=== PATIENT | female | born 1995 | race Caucasian/White ===

== ENCOUNTER 2016-03-22 17:01 | Emergency (ER) | payer OTHER ==
[~2016-03-22] VITALS: Ht 172.7 cm; Wt 74.2 kg
[2016-03-22 17:24] VITALS: Ht 172.7 cm; Wt 74.2 kg
[2016-03-22] MEDS ORDERED: KETOROLAC TROMETHAMINE 30 MG/ML VIAL IV STA (18:25)
[2016-03-22] MEDS ORDERED: SODIUM CHLORIDE 0.9% 1000ML 1,000 ML IV ONE (18:25)
[2016-03-22] MEDS ORDERED: SODIUM CHLORIDE 0.9% 1000ML 1,000 ML IV STA (18:25)
--- NOTE | 2016-03-22 18:34 | EMERGENCY ROOM VISIT NOTE ---
History Report prepared by Jessika: Christopher Hope Under the Supervision of: Dr. Christopher Friedman M.D. First contact with patient: 18:14 Chief Complaint: FLU LIKE SX Stated Complaint: FEVER, INCREASED HEART RATE History of Present Illness The patient is a 20 year old female who presents to the Emergency Room with complaints of a persistent illness beginning yesterday. She notes she had a fever of 101.8 yesterday morning and today was a high of 105. She was seen at [facility] earlier today and was given Tylenol. A rapid strep test at [facility] was negative. She admits to having a sore throat with pain during swallowing, a mild headache that comes and goes, neck soreness, and body aches. She denies any post nasal drip, cough, ear ache, rhinorrhea, numbness or weakness. She has been drinking fluids. She denies any chance of , thyroid problems, or contact with sick people. The patient has asthma. No rash. Source of History: patient Onset: yesterday Position: other (global) Symptom Intensity: fever high today of 105 Quality: other (illness) Timing: other (persistent) Associated Symptoms: + fevers (101.8 yesterday; 105 toady), + headache, + sorethroat (and pain during swallowing), No cough, No diarrhea, No numbness, No urinary symptoms, No weakness Review of Systems See HPI for pertinent positives & negatives. A total of 10 systems reviewed and were otherwise negative. Past Medical & Surgical Medical Problems: (1) History of asthma Old medical records were reviewed. Nurse's notes were reviewed and I agree with. Denies significant past medical history besides asthma which has not given her problems at present Family History No pertinent family history stated. Social History Smoking Status: Never Smoker Drug Use: none Current/Historical Medications Scheduled Levonorgestrel (Iud) (Mirena), 1 DOSE VAGRING MONTHLY Oseltamivir (Tamiflu), 75 MG PO BID [Symbicort], 2 PUFFS PO BID Allergies Coded Allergies: No Known Allergies (Unverified , 03/22/16) Physical Exam Vital Signs Date Time Temp Pulse Resp B/P Pulse Ox O2 Delivery O2 Flow Rate FiO2 03/22/16 23:20 94 18 104/72 99 Room Air 03/22/16 19:14 37.4 103 122/65 98 Room Air 03/22/16 17:24 37.9 142 18 121/64 96 Room Air Physical Exam General: Well developed well nourished in no acute distress, breathing comfortably on room air. Normal speech. Non-ill appearing, young female. HEENT: Normal cephalic atraumatic. Pupils are equal round and reactive to light. Extraocular movements are intact. Oropharynx is pink with moist mucous membranes. No swelling of the mouth lips or tongue. Neck: Supple with a midline trachea. No meningeal signs or stiffness, no JVD or bruits. No Stridor. Kernig and Brudzinski signs are negative. Mild cervical lymphadenopathy. Chest: Clear to auscultation bilaterally. No wheezes or rhonchi. No increased work of breathing. Heart: regular rate and rhythm. Abdomen: Soft nontender, nondistended without rebound guarding or rigidity. Extremities: No cyanosis clubbing or edema. No calf tenderness or assymetry Spine/Back. Non tender to palpation. No CVA tenderness Skin: Good turgor without rashes. Neurologic exam: Cranial nerves two through 12 are intact. Motor and sensation are intact and symmetrical throughout. Medical Decision & Procedures ER Provider Diagnostic Interpretation: X-ray results as stated below per interpretation by me and the radiologist: CHEST ONE VIEW PORTABLE FINDINGS: The cardiac and mediastinal contours are normal. There is no evidence of focal pulmonary consolidation. There is no evidence of failure. No pleural effusions are visualized. IMPRESSION: No active disease in the chest. Electronically signed by: Quinton Adame M.D. 03/22/2016 6:40 PM Dictated Date/Time: 03/22/2016 6:40 PM Laboratory Results 03/22/16 18:54 Red Blood Count 4.01, Mean Corpuscular Volume 83.0, Mean Corpuscular Hemoglobin 27.9, Mean Corpuscular Hemoglobin Concent 33.6, Mean Platelet Volume 8.9, Neutrophils (%) (Auto) 82.3, Lymphocytes (%) (Auto) 9.0, Monocytes (%) (Auto) 8.1, Eosinophils (%) (Auto) 0.0, Basophils (%) (Auto) 0.3, Neutrophils # (Auto) 14.37, Lymphocytes # (Auto) 1.57, Monocytes # (Auto) 1.41, Eosinophils # (Auto) 0.00, Basophils # (Auto) 0.06 03/22/16 18:54 Test 03/22/16 18:45 03/22/16 18:54 03/22/16 18:58 Influenza Type A Antigen Neg for Influ A (NEG) Influenza Type B Antigen Neg for Influ B (NEG) White Blood Count 17.47 K/uL (4.8-10.8) Red Blood Count 4.01 M/uL (4.2-5.4) Hemoglobin 11.2 g/dL (12.0-16.0) Hematocrit 33.3 % (37-47) Mean Corpuscular Volume 83.0 fL (80-100) Mean Corpuscular Hemoglobin 27.9 pg (25-34) Mean Corpuscular Hemoglobin Concent 33.6 g/dl (32-36) Platelet Count 322 K/uL (130-400) Mean Platelet Volume 8.9 fL (7.4-10.4) Neutrophils (%) (Auto) 82.3 % Lymphocytes (%) (Auto) 9.0 % Monocytes (%) (Auto) 8.1 % Eosinophils (%) (Auto) 0.0 % Basophils (%) (Auto) 0.3 % Neutrophils # (Auto) 14.37 K/uL (1.4-6.5) Lymphocytes # (Auto) 1.57 K/uL (1.2-3.4) Monocytes # (Auto) 1.41 K/uL (0.11-0.59) Eosinophils # (Auto) 0.00 K/uL (0-0.5) Basophils # (Auto) 0.06 K/uL (0-0.2) RDW Standard Deviation 41.8 fL (36.4-46.3) RDW Coefficient of Variation 13.7 % (11.5-14.5) Immature Granulocyte % (Auto) 0.3 % Immature Granulocyte # (Auto) 0.06 K/uL (0.00-0.02) Anion Gap 15.0 mmol/L (3-11) Est Creatinine Clear Calc Drug Dose 99.4 ml/min Estimated GFR () 105.3 Estimated GFR (Non- 90.8 BUN/Creatinine Ratio 11.3 (10-20) Calcium Level 8.8 mg/dl (8.5-10.1) Total Bilirubin 0.5 mg/dl (0.2-1) Direct Bilirubin 0.1 mg/dl (0-0.2) Aspartate Amino Transf (AST/SGOT) 22 U/L (15-37) Alanine Aminotransferase (ALT/SGPT) 25 U/L (12-78) Alkaline Phosphatase 65 U/L (45-117) Total Creatine Kinase 59 U/L (26-192) Creatine Kinase MB < 0.5 ng/ml (0.5-3.6) Creatine Kinase MB Ratio (0-3.0) Total Protein 7.2 gm/dl (6.4-8.2) Albumin 3.2 gm/dl (3.4-5.0) Lipase 139 U/L (73-393) Human Chorionic Gonadotropin, Qual NEG (NEG) Monoscreen NEG (NEG) Bedside Troponin I 0.000 ng/ml (0-0.045) Laboratory studies as stated above per my review. Medications Administered Medications (Trade) Dose Ordered Sig/Jennyfer Route Start Time Stop Time Status Last Admin Dose Admin Sodium Chloride 1,000 ml @ 999 mls/hr Q1H1M STAT IV 03/22/16 18:25 03/22/16 19:35 DC 03/22/16 18:25 999 MLS/HR Sodium Chloride (Nss 1000ml) 1,000 ml @ 200 mls/hr Q5H ONCE IV 03/22/16 18:25 03/22/16 23:24 DC 03/22/16 19:15 200 MLS/HR Ketorolac Tromethamine (Toradol Inj) 30 mg NOW STAT IV 03/22/16 18:25 03/22/16 18:27 DC 03/22/16 18:25 30 MG Oseltamivir Phosphate (Tamiflu Cap) 75 mg NOW STAT PO 03/22/16 21:16 03/22/16 21:18 DC 03/22/16 21:42 75 MG ECG Indication: other (illness) Rate (beats per minute): 101 Rhythm: sinus tachycardia Findings: no acute ischemic change, no ectopy, other (nonspecific T wave abnormality) Comparison ECG Date: no prior available ED Course 1817: Past medical records reviewed. The patient was evaluated in room C12, and a complete history and physical examination were performed. 1824: Ordered Toradol Inj 30 mg IV, NSS 1,000 ml @ 200 mls/hr IV, and NSS 1,000 ml @ 999 mls/hr IV. 1920: I reassessed the patient and she is resting comfortably. Her heart rate is down to 103 and she is now afebrile. 2112: I reassessed the patient. She is feeling better. 2115: Ordered Tamiflu Cap 75 mg PO. 2199: Upon reevaluation, the patient is hemodynamically stable. I discussed the results and treatment plan with the patient. She verbalized agreement of the treatment plan. The patient was discharged home. Medical Decision Differentials include dehydration, influenza, mononucleosis, and electrolyte or metabolic abnormality. This patient comes in as described above. She's had flulike symptoms and a fast heart rate. This was in the setting of having a temperature of up to 105 in the urgent care center. Upon arrival to the ER, her temperature is only minimally elevated. She looks well and she's completely [id number]. She is nontoxic non-lethargic. She has no meningeal signs or stiffness and nothing clinically to suggest meningitis encephalitis or sepsis. IV access was established and she was hydrated with IV normal saline bolus and hourly rate of IV normal saline. Her heart rate came down to 100 her temperature came down and again she looks great still. Chest x-ray was clear. Her white count is elevated at 17 however she has no other focus to suggest any bacterial infection. I did a Monospot it was negative. She has no acute electrolyte or metabolic abnormalities. Influenza was negative however it could be falsely negative. I think she most likely does have a viral illness. I will start her on Tamiflu as this just started recently and could be influenza first dose was given here she looks great. EKG was unremarkable and she's nothing is she has myocarditis or pericarditis or endocarditis at this point. I think her tachycardia was likely related to her fever and some mild dehydration. It is resolved at this point with IV hydration and antipyretics I will have her rest and drink plenty of fluids use Tylenol and/or ibuprofen but do not exceed the [id number] recommended dosages. Return if: Worsening of symptoms, not tolerating fluids, any new problems or concerns. Impression Primary Impression: Influenza-like symptoms Additional Impressions: Dehydration Tachycardia Scribe Attestation The scribe's documentation has been prepared under my direction and personally reviewed by me in its entirety. I confirm that the note above accurately reflects all work, treatment, procedures, and medical decision making performed by me. Departure Information Dispostion Home / Self-Care Prescriptions Oseltamivir (Tamiflu) 75 Mg Cap 75 MG PO BID, #10 CAP Prov: Christopher Friedman M.D. 03/22/16 Referrals No Doctor, Assigned (PCP) Patient Instructions My [facility] Additional Instructions Rest. Drink plenty of fluids. Return if: Worsening of symptoms, not tolerating fluids, any new problems or concerns. Use Tamiflu twice a day for 5 days May use [id number] ibuprofen and/or Tylenol if needed for pain or fever Do not exceed more than 650 mg of acetaminophen (Tylenol) every 6 hours. Do not take Tylenol with any other medications that contain Tylenol/ acetaminophen. [facility]2 days for recheck if not better. Return here over the weekend if symptoms worsen. Problem Qualifiers
--- NOTE | 2016-03-22 18:42 | DIAGNOSTIC IMAGING REPORT ---
CHEST ONE VIEW PORTABLE CLINICAL HISTORY: CHEST PAIN FEVER, TACHYCARDIA. COMPARISON STUDY: No previous studies for comparison. FINDINGS: The cardiac and mediastinal contours are normal. There is no evidence of focal pulmonary consolidation. There is no evidence of failure. No pleural effusions are visualized.[ IMPRESSION: No active disease in the chest. Electronically signed by: Quinton Adame M.D. 03/22/2016 6:40 PM Dictated Date/Time: 03/22/2016 6:40 PM
[2016-03-22 19:05] LABS: BASO % 0.3 %; BASO ABS # 0.06 K/uL (0-0.2); COMPLETE YES; HEMATOCRIT 33.3 % (37-47); IG% 0.3 %; LYMPH ABS # 1.57 K/uL (1.2-3.4); MEAN CORPUSCULAR HEMOGLOBIN 27.9 pg (25-34); MEAN CORPUSCULAR HGB CONC 33.6 g/dl (32-36); MEAN PLATELET VOLUME 8.9 fL (7.4-10.4); MONO % 8.1 %; NEUT % 82.3 %; PLATELET COUNT 322 K/uL (130-400); RED BLOOD COUNT 4.01 M/uL (4.2-5.4); WHITE BLOOD COUNT 17.47 K/uL (4.8-10.8)
[2016-03-22] MEDS ORDERED: SYMBICORT PO (19:06)
[2016-03-22] MEDS ORDERED: LEVOIUD VAGRING (19:06)
[2016-03-22 19:14] VITALS: TEMP 37.4
[2016-03-22 19:31] LABS: ALKALINE PHOSPHATASE 65 U/L (45-117); ALT/SGPT 25 U/L (12-78); AST/SGOT 22 U/L (15-37)
[2016-03-22 19:32] LABS: PREG INTERNAL NEGATIVE QC NEG CLEAR BACKGROUND; PREG INTERNAL POSITIVE QC POS CONTROL LINE
[2016-03-22 19:44] LABS: BLOOD UREA NITROGEN 10 mg/dl (7-18); BUN/CREATININE RATIO 11.3 (10-20); CALCIUM 8.8 mg/dl (8.5-10.1); CARBON DIOXIDE 20 mmol/L (21-32); CHLORIDE 102 mmol/L (98-107); CREATININE 0.91 mg/dl (0.60-1.20); GLUCOSE 98 mg/dl (70-99); POTASSIUM 3.6 mmol/L (3.5-5.1); SODIUM 137 mmol/L (136-145)
[2016-03-22] MEDS ORDERED: OSELTAMIVIR PHOSPHATE 75 MG CAP PO STA (21:16)
[2016-03-22] MEDS ORDERED: OSEL75CA12 PO (21:16)
[2016-03-22 23:20] VITALS: BP 104/72; PULSE 94; O2SAT 99
== END 2016-03-22 23:23 | disposition home or self-care (01) ==
LOC: C.EDB 17:03 → C.EDC 23:23
DX: J11.1 Influenza due to unidentified influenza virus with other respiratory manifestations (principal); E86.0 Dehydration; R00.0 Tachycardia, unspecified; J45.909 Unspecified asthma, uncomplicated